=== PATIENT | female | born 1985 | race Caucasian/White ===

== ENCOUNTER 2016-06-20 08:17 | Emergency (ER) | payer OTHER ==
[~2016-06-20 08:17] MED LIST: IBUPROFEN800 M1 PO; MOTRIN800 MG PO; PERCOCET 5-3251 EACH PO; PERCOCET 5/3251 TAB PO; PRENATAL1 EACH PO; VITAMIN D35000 UNI3 PO
[2016-06-20] MEDS ORDERED: IBUPROFEN200 M2 PO (08:24)
[2016-06-20] MEDS ORDERED: CYCLOBENZAPRINE5 M1 PO (08:40)
== END 2016-06-20 09:00 ==
LOC: EDMED 08:17
DX: M54.2 Cervicalgia (principal); M25.512 Pain in left shoulder; G89.29 Other chronic pain; Z98.890 Other specified postprocedural states